=== PATIENT | male | born 1950 | race Caucasian/White ===

== ENCOUNTER → 2017-05-29 | Outpatient (CLI) | payer MEDICARE, OTHER ==
[~2017-05-29] MED LIST: ACETAMINOPHEN325 M1 PO; ASPIR 8181 MG PO; CEFAZOLIN 1GM VI1 G1; ELIQUIS5 MG PO; FLECAINIDE ACET50 M1 PO; GLIPIZIDE 10 MG10 MG PO; GLUCOPHAGE XR500 MG PO; GLUCOPHAGE500 MG PO; GLYBURIDE 2.5 MG PO; HUMALOG100 UNIT/1 SUBQ; HYDROCODONE-AP1 EAC6 PO; JANUVIA100 MG PO; LEVEMIR SUBQ; LISINOPRIL20 MG PO; PERCOCET 5-3251 EACH; PRAVACHOL40 MG PO; TOPROL XL25 MG PO; VAN500AD IV; VITAMIN D1000 UNI1 PO; VITAMINC500 PO; ZOSYN 3.3753.375 GM IV; ZYVOX600 MG PO
--- NOTE | 2017-05-30 13:24 | CON ---
[address] [address] CONSULTATION Name: VONDALUCIA Room: [facility]#: [id number] Admission: 05/29/17 Attend Phys: David Murguia DPM Discharge: Date of : 52 Report #: [id number] THIS REPORT FOR: //name// CC: David Cannon DATE OF SERVICE: 05/29/2017 INFECTIOUS DISEASE CONSULTATION AND FOLLOWUP ATTENDING PHYSICIAN: David Murguia DPM. REASON FOR FOLLOWUP: Left foot large wound deep-seated infection, multifocal osteomyelitis and previous transmetatarsal amputation. HISTORY OF PRESENT ILLNESS: The patient returns today in followup. He generally feels fairly well. He denies any particular complaints or specific question about fevers or chills. Appetite has been okay. He has significant peripheral neuropathy. PHYSICAL EXAMINATION: On examination, the wound actually has improved. There is a big gap still, although on probing, there is no evidence of exposed bone at this point. There is very little drainage. The overall degree of inflammation is decreased. There is no particular odor. I do not appreciate any purulence. He had completed his course of antibiotics within the last few days. ASSESSMENT AND PLAN: Deep foot infection. At this point, he had been on combination therapy. We will not renew those and continue wound VAC as prescribed by Dr. Murguia. We will see him in 2 weeks. He himself is instructed to call if problems or concerns. <ELECTRONICALLY SIGNED> By: Bandar Montes MD 05/30/17 1324 [id number] [id number] Montes MD /nt
== END ==
LOC: M.WC 05-22 14:00
DX: E11.621 Type 2 diabetes mellitus with foot ulcer (principal); L97.521 Non-pressure chronic ulcer of other part of left foot limited to breakdown of skin; L97.511 Non-pressure chronic ulcer of other part of right foot limited to breakdown of skin; L97.411 Non-pressure chronic ulcer of right heel and midfoot limited to breakdown of skin; E11.40 Type 2 diabetes mellitus with diabetic neuropathy, unspecified; L89.893 Pressure ulcer of other site, stage 3; E11.618 Type 2 diabetes mellitus with other diabetic arthropathy; I87.2 Venous insufficiency (chronic) (peripheral); B35.3 Tinea pedis; L89.894 Pressure ulcer of other site, stage 4; E11.36 Type 2 diabetes mellitus with diabetic cataract; Z89.422 Acquired absence of other left toe(s)

== ENCOUNTER → 2017-06-05 | Outpatient (CLI) | payer MEDICARE, OTHER | LOC: M.WC 02:41 | DX: E11.621 Type 2 diabetes mellitus with foot ulcer (principal); L97.521 Non-pressure chronic ulcer of other part of left foot limited to breakdown of skin; L97.511 Non-pressure chronic ulcer of other part of right foot limited to breakdown of skin; L97.411 Non-pressure chronic ulcer of right heel and midfoot limited to breakdown of skin; E11.622 Type 2 diabetes mellitus with other skin ulcer; L97.821 Non-pressure chronic ulcer of other part of left lower leg limited to breakdown of skin; E11.40 Type 2 diabetes mellitus with diabetic neuropathy, unspecified; I87.2 Venous insufficiency (chronic) (peripheral); B35.3 Tinea pedis; E11.36 Type 2 diabetes mellitus with diabetic cataract; Z89.422 Acquired absence of other left toe(s) ==

== ENCOUNTER → 2017-06-19 | Outpatient (CLI) | payer MEDICARE, OTHER ==
--- NOTE | 2017-06-20 10:51 | CON ---
[address] [address] CONSULTATION Name: VONDALUCIA W Room: [facility].#: [id number] Admission: 06/19/17 Attend Phys: David Murguia DPM Discharge: Date of : 52 Report #: [id number] THIS REPORT FOR: //name// CC: David Cannon DATE OF SERVICE: 06/19/2017 INFECTIOUS DISEASE CONSULTATION FOLLOWUP NOTE The patient was seen in the Wound Care Center. ATTENDING PHYSICIAN: David Murguia DPM. HISTORY OF PRESENT ILLNESS: Here for followup transmetatarsal amputation due to deep infection involving the left foot. He has also got some right plantar ulcers as well. Generally, he had been doing fairly well and continues to deny any systemic illness. He is undergoing wound care including wound VAC involving the still over the large defect transmetatarsal site lateral aspect. On examination, there is no exposed bone. Generally, the tissue is improved. He has been off antibiotics for the last 2-3 weeks, with only utilizing topical therapy at this point. ASSESSMENT AND PLAN: Deep foot infection. At this point, I do not have any plans to restart the antibiotics. He is to call if problems or concerns. I will see him intermittently in the short term, perhaps in 2 weeks. Continue wound care as prescribed by Dr. Murguia. <ELECTRONICALLY SIGNED> By: Bandar Montes MD 06/20/17 1051 0753 [id number] Montes MD /naeem
== END ==
LOC: M.WC 06-12 01:26
DX: E11.621 Type 2 diabetes mellitus with foot ulcer (principal); I87.2 Venous insufficiency (chronic) (peripheral); L97.521 Non-pressure chronic ulcer of other part of left foot limited to breakdown of skin; L97.511 Non-pressure chronic ulcer of other part of right foot limited to breakdown of skin; L89.894 Pressure ulcer of other site, stage 4; E11.40 Type 2 diabetes mellitus with diabetic neuropathy, unspecified; B35.3 Tinea pedis; E11.36 Type 2 diabetes mellitus with diabetic cataract; Z89.422 Acquired absence of other left toe(s)

== ENCOUNTER → 2017-06-26 | Outpatient (CLI) | payer MEDICARE, OTHER ==
--- NOTE | 2017-06-27 13:58 | CON ---
[address] [address] CONSULTATION Name: VONDALUCIA Room: [facility] Tez.#: [id number] Admission: 06/26/17 Attend Phys: David Murguia DPM Discharge: Date of : 52 Report #: [id number] THIS REPORT FOR: //name// CC: David Cannon DATE OF SERVICE: 06/26/2017 ATTENDING PHYSICIAN: Dr. David Murguia. HISTORY OF PRESENT ILLNESS: He is seen in the outpatient wound care center for ongoing issue of large defect involving the lateral aspect of the transmetatarsal amputation site, had received extended course of antibiotics, first parenteral then enteral over several weeks. This was discontinued roughly 3 weeks ago and monitored expectantly. He has generally been doing well, denies systemic illness. The wound itself has overall diminished in its size. On examination, there is no exposed bone. There is really no purulence. The wound appears to be fairly stable to improved and this is in spite of being off antibiotics for 3 weeks. I did review the labs, the sed rate has increased a little bit to 50 from 43. ASSESSMENT AND PLAN: Large postoperative foot wound. Will continue off antibiotics. We will be available as needed. Call if problems. <ELECTRONICALLY SIGNED> By: Bandar Montes MD 06/27/17 1358 0659 [id number] Montes MD /naeem
== END ==
LOC: M.WC 01:29 → M.RAD 01:29 → M.WC 14:00
DX: E11.621 Type 2 diabetes mellitus with foot ulcer (principal); L97.521 Non-pressure chronic ulcer of other part of left foot limited to breakdown of skin; L97.511 Non-pressure chronic ulcer of other part of right foot limited to breakdown of skin; L97.411 Non-pressure chronic ulcer of right heel and midfoot limited to breakdown of skin; E11.40 Type 2 diabetes mellitus with diabetic neuropathy, unspecified; I87.2 Venous insufficiency (chronic) (peripheral); B35.3 Tinea pedis; E11.36 Type 2 diabetes mellitus with diabetic cataract; Z89.422 Acquired absence of other left toe(s)

== ENCOUNTER → 2017-07-03 | Outpatient (CLI) | payer MEDICARE, OTHER | LOC: M.RAD 02:57 → M.WC 02:57 | DX: E11.621 Type 2 diabetes mellitus with foot ulcer (principal); L97.521 Non-pressure chronic ulcer of other part of left foot limited to breakdown of skin; L97.511 Non-pressure chronic ulcer of other part of right foot limited to breakdown of skin; L97.411 Non-pressure chronic ulcer of right heel and midfoot limited to breakdown of skin; E11.40 Type 2 diabetes mellitus with diabetic neuropathy, unspecified; E11.610 Type 2 diabetes mellitus with diabetic neuropathic arthropathy; E11.69 Type 2 diabetes mellitus with other specified complication; M86.372 Chronic multifocal osteomyelitis, left ankle and foot; E11.36 Type 2 diabetes mellitus with diabetic cataract; Z89.422 Acquired absence of other left toe(s) ==

== ENCOUNTER → 2017-07-10 | Outpatient (CLI) | payer MEDICARE, OTHER | LOC: M.WC 01:45 | DX: E11.621 Type 2 diabetes mellitus with foot ulcer (principal); L97.521 Non-pressure chronic ulcer of other part of left foot limited to breakdown of skin; L97.411 Non-pressure chronic ulcer of right heel and midfoot limited to breakdown of skin; E11.69 Type 2 diabetes mellitus with other specified complication; M86.372 Chronic multifocal osteomyelitis, left ankle and foot; E11.610 Type 2 diabetes mellitus with diabetic neuropathic arthropathy; E11.40 Type 2 diabetes mellitus with diabetic neuropathy, unspecified; E11.36 Type 2 diabetes mellitus with diabetic cataract; I87.2 Venous insufficiency (chronic) (peripheral); B35.3 Tinea pedis; Z89.422 Acquired absence of other left toe(s) ==

== ENCOUNTER → 2017-07-17 | Outpatient (CLI) | payer MEDICARE, OTHER | LOC: M.WC 01:39 | DX: E11.621 Type 2 diabetes mellitus with foot ulcer (principal); L97.521 Non-pressure chronic ulcer of other part of left foot limited to breakdown of skin; L97.411 Non-pressure chronic ulcer of right heel and midfoot limited to breakdown of skin; L97.511 Non-pressure chronic ulcer of other part of right foot limited to breakdown of skin; E11.40 Type 2 diabetes mellitus with diabetic neuropathy, unspecified; I87.2 Venous insufficiency (chronic) (peripheral); B35.3 Tinea pedis; E11.36 Type 2 diabetes mellitus with diabetic cataract; Z89.422 Acquired absence of other left toe(s) ==

== ENCOUNTER → 2017-07-24 | Outpatient (CLI) | payer MEDICARE, OTHER | LOC: M.WC 03:29 | DX: E11.621 Type 2 diabetes mellitus with foot ulcer (principal); L97.521 Non-pressure chronic ulcer of other part of left foot limited to breakdown of skin; L97.511 Non-pressure chronic ulcer of other part of right foot limited to breakdown of skin; L97.411 Non-pressure chronic ulcer of right heel and midfoot limited to breakdown of skin; E11.40 Type 2 diabetes mellitus with diabetic neuropathy, unspecified; I87.2 Venous insufficiency (chronic) (peripheral); E11.36 Type 2 diabetes mellitus with diabetic cataract; B35.3 Tinea pedis; Z89.422 Acquired absence of other left toe(s) ==

== ENCOUNTER → 2017-07-31 | Outpatient (CLI) | payer MEDICARE, OTHER | LOC: M.WC 04:48 | DX: E11.621 Type 2 diabetes mellitus with foot ulcer (principal); L97.521 Non-pressure chronic ulcer of other part of left foot limited to breakdown of skin; L97.411 Non-pressure chronic ulcer of right heel and midfoot limited to breakdown of skin; E11.36 Type 2 diabetes mellitus with diabetic cataract; E11.40 Type 2 diabetes mellitus with diabetic neuropathy, unspecified; E11.610 Type 2 diabetes mellitus with diabetic neuropathic arthropathy; E11.69 Type 2 diabetes mellitus with other specified complication; M86.372 Chronic multifocal osteomyelitis, left ankle and foot; I87.2 Venous insufficiency (chronic) (peripheral); B35.3 Tinea pedis; Z89.422 Acquired absence of other left toe(s) ==

== ENCOUNTER → 2017-08-07 | Outpatient (CLI) | payer MEDICARE, OTHER | LOC: M.WC 01:56 | DX: E11.621 Type 2 diabetes mellitus with foot ulcer (principal); L89.894 Pressure ulcer of other site, stage 4; L97.411 Non-pressure chronic ulcer of right heel and midfoot limited to breakdown of skin; E11.40 Type 2 diabetes mellitus with diabetic neuropathy, unspecified; E11.36 Type 2 diabetes mellitus with diabetic cataract; B35.3 Tinea pedis ==

== ENCOUNTER 2017-08-08 10:07 | Inpatient (IN) | payer MEDICARE, OTHER ==
[~2017-08-08] VITALS: Ht 180.3 cm; Wt 109.8 kg
[2017-08-08] VITALS (11 sets, daily range): BP systolic 104–150; BP diastolic 61–106
[~2017-08-08 10:07] MED LIST changes: -ACETAMINOPHEN325 M1 PO; -ASPIR 8181 MG PO; -ELIQUIS5 MG PO; -FLECAINIDE ACET50 M1 PO; -LEVEMIR SUBQ; -TOPROL XL25 MG PO; -VITAMIN D1000 UNI1 PO; -VITAMINC500 PO
[2017-08-08] MEDS ORDERED: ASPIR 8181 MG PO (10:20)
[2017-08-08] MEDS ORDERED: LEVEMIR SUBQ (10:20)
[2017-08-08] MEDS ORDERED: VITAMINC500 PO (10:21)
[2017-08-08] MEDS ORDERED: VITAMIN D1000 UNI1 PO ×2 (10:21)
[2017-08-08 11:09] LABS: ABSOLUTE BASOPHILS 0.1 thou/uL (0.0-0.2); ABSOLUTE EOSINOPHILS 0.8 thou/uL (0.0-0.7); ABSOLUTE LYMPHOCYTES 1.5 thou/uL (0.8-5.3); ABSOLUTE MONOCYTES 0.7 thou/uL (0.0-1.2); ABSOLUTE NEUTROPHILS 6.1 thou/uL (1.6-8.1); EOSINOPHILS 8.6 %; HEMATOCRIT 34.2 % (42.0-52.0); HEMOGLOBIN 11.2 gm/dL (14.0-18.0); LYMPHOCYTES 16.3 %; MCH 28.9 pg (26.0-34.0); MCHC 32.9 g/dL (28.0-37.0); MCV 87.7 fL (80.0-100.0); MONOCYTES 7.4 %; MPV 9.7 fl. (7.2-11.1); NUCLEATED RBCS 0 /100WBC; PLATELET COUNT* 238 thou/uL (150-400); POLYS 66.7 %; RDW-CV 16.2 % (10.5-14.5); WBC 9.1 thou/uL (4.0-11.0)
[2017-08-08 11:17] LABS: ANION GAP 7 mmol/L (7-16); APTT 26.7 Seconds (25.0-31.3); BUN 62 mg/dL (7-18); CALCIUM 8.7 mg/dL (8.5-10.1); CHLORIDE 109 mmol/L (98-107); CO2 25 mmol/L (21-32); CREATININE 1.9 mg/dL (0.6-1.3); GLUCOSE 140 mg/dL (70-99); SODIUM 141 mmol/L (136-145)
[2017-08-08 11:27] LABS: ALBUMIN 3.5 g/dL (3.4-5.0); ALKALINE PHOSPHATASE 61 U/L (46-116); LIPASE 207 U/L (73-393); NT-PRO BRAIN NAT PEPTIDE 1064 pg/mL (<300); POTASSIUM 7.1 mmol/L (3.5-5.1); SGOT 24 U/L (15-37); SGPT 26 U/L (30-65); TOTAL BILIRUBIN 0.3 mg/dL (<0.1-1.0); TOTAL PROTEIN 6.8 g/dL (6.4-8.2); TROPONIN-I LEVEL <0.06 ng/mL (<0.06)
--- NOTE | 2017-08-08 13:50 | NUR ---
PT BROUGHT TO ICU FROM ED. ASSESSMENT AND VS OBTAINED, SEE CHARTING. PT REMAINS TO BE IN A FLUTTER. CARDIOLOGY NURSE AT BEDSIDE AND NEW ORDERS OBTAINED. NISHI Armstrong+. PT HAS SEVERAL WOUNDS ON FEET AND PICS WERE OBTAINED.
[2017-08-08 14:40] LABS: CALCIUM 8.7 mg/dL (8.5-10.1); CREATININE 1.9 mg/dL (0.6-1.3); POTASSIUM 5.3 mmol/L (3.5-5.1)
--- NOTE | 2017-08-08 14:45 | NUR ---
K+ WAS 5.3. DR BARNETT WAS NOTIFIED OF LAB RESULTS AND URINE OUTPUT. ORDERS TO INCREASE NS TO 125ML/HR.
--- NOTE | 2017-08-08 16:18 | EKG ---
[place] [address] ELECTROCARDIOGRAM REPORT Name: LUCIA FERRARI Room: [address] ADM IN .R.#: [id number] Admission: 08/08/17 Attend Phys: Nicolas Don Discharge: Date of : 52 Report #: [id number] THIS REPORT FOR: //name// [facility] ED Test Date: 2017-08-08 Test Time: 10:16:16 Pat Name: LUCIA FERRARI Department: Room: [facility] Gender: M Healthcare Customer Service: : 1950 Requested By: Octavio Robb Order Number: [id number] MD: Aly Fritz Measurements Intervals [place] Rate: 95 P: [place]: QRS: 83 QRSD: 103 T: 49 QT: 368 QTc: 463 Interpretive Statements Atrial flutter Borderline right axis deviation Low voltage, extremity and precordial leads Compared to ECG 03/18/2017 15:01:28 Sinus tachycardia no longer present Electronically Signed On 08-08-2017 16:18:09 CDT by Aly Fritz [email or web address] <ELECTRONICALLY SIGNED> By: Aly Fritz MD, FACC 08/08/17 1618 1016 1016 Aly Fritz MD, FAC /EPI
--- NOTE | 2017-08-08 16:52 | 2DMMODE ---
[place] [address] 2 D/M-MODE ECHOCARDIOGRAM Name: LUCIA FERRARI Room: [address] IN [facility]#: [id number] Admission: 08/08/17 Attend Phys: Omega Khan Discharge: Date of : 52 Date of Service: 08/08/17 1652 Report #: [id number] THIS REPORT FOR: //name// APPROVED REPORT Study performed: 08/08/2017 15:16:44 EXAM: Comprehensive 2D, Doppler, and color-flow Echocardiogram Patient Location: In-Patient Room #: [facility] Status: routine BSA: 2.41 HR: 99 bpm BP: 109/71 mmHg Rhythm: NSR Other Information Study Quality: Good Indications A flutter 2D Dimensions LVEF(%): 64.58 (>50%) IVSd: 10.99 (7-11mm) LVOT Diam: 21.67 (18-24mm) LVDd: 45.10 mm PWd: 10.65 (7-11mm) Ascending Ao: 31.60 (22-36mm) LVDs: 29.26 (25-40mm) Aortic Root: 39.48 mm Daley's LVEF: 64.58 % Volumes Left Atrial Volume (Systole) LA ESV Index: 16.80 mL/m2 Aortic Valve AoV Peak Luis Armando.: 1.39 m/s AO Peak Gr.: 7.77 mmHg LVOT Max P.24 mmHg AO Mean Gr.: 4.07 mmHg LVOT Mean P.19 mmHg LVOT Max V: 1.03 m/s AO V2 VTI: 23.22 cm LVOT Mean V: 0.68 m/s ADRIÁN (VTI): 2.94 cm2 LVOT V1 VTI: 18.49 cm Mitral Valve E/A Ratio: 1.09 [place] [address] 2 D/M-MODE ECHOCARDIOGRAM Name: LUCIA FERRARI Room: [address] IN [facility]#: [id number] Admission: 08/08/17 Attend Phys: Omega Khan Discharge: Date of : 52 Date of Service: 08/08/17 1652 Report #: [id number] MV Decel. Time: 190.62 ms MV E Max Luis Armando.: 0.93 m/s MV PHT: 55.28 ms MVA (PHT): 3.98 cm2 TDI E/Lateral E': 5.47 E/Medial E': 5.81 Medial E' Luis Armando.: 0.16 m/s Lateral E' Luis Armando.: 0.17 m/s Pulmonary Valve PV Peak Luis Armando.: 1.32 m/s PV Peak Gr.: 6.97 mmHg Left Ventricle The left ventricle is normal size. There is normal LV segmental wall motion. There is normal left ventricular wall thickness. Left ventricular systolic function is normal. LVEF is 55-60%. The left ventricular diastolic function is normal. Right Ventricle The right ventricle is normal size. The right ventricular systolic function is normal. Atria The left atrium size is normal. The right atrium size is normal. Aortic Valve The aortic valve is normal in structure. No aortic regurgitation is present. There is no aortic valvular stenosis. Mitral Valve The mitral valve is normal in structure. Trace mitral regurgitation. No evidence of mitral valve stenosis. Tricuspid Valve The tricuspid valve is normal in structure. Unable to assess PA pressure. Trace tricuspid regurgitation. Pulmonic Valve The pulmonary valve is normal in structure. There is no pulmonic valvular regurgitation. Great Vessels The aortic root is normal in size. IVC is normal in size and collapses with >50% [place] [address] 2 D/M-MODE ECHOCARDIOGRAM Name: LUCIA FERRARI Room: [address] IN ..#: [id number] Admission: 08/08/17 Attend Phys: Omega Khan Discharge: Date of : 52 Date of Service: 08/08/17 1652 Report #: [id number] Pericardium There is no pericardial effusion. <Conclusion> The left ventricle is normal size. There is normal left ventricular wall thickness. Left ventricular systolic function is normal. LVEF is 55-60%. The left ventricular diastolic function is normal. Trace mitral regurgitation. IVC is normal in size and collapses with >50% inspiration <ELECTRONICALLY SIGNED> By: Butch Tran MD, FACC 08/08/171651 51 51 Butch Tran MD, FACC /INF
[2017-08-08 18:18] LABS: CALCIUM 8.4 mg/dL (8.5-10.1); CREATININE 1.9 mg/dL (0.6-1.3)
--- NOTE | 2017-08-08 20:57 | NUR ---
RECIEVED REPORT AND ASSUMED CARE OF PT AT 1930. PT HAD BOWEL MOVEMENT AT THAT TIME AFTER RECIEVING KAYEXALATE DURING DAYSHIFT. PT'S POTASSIUM LEVEL AT 5 PER LAST LAB VALUE. PT IN ATRIAL FLUTTER ON MONITOR, HEART RATE 70-90. PT DENIES CHEST OAINDIZZINESS OR SHORTNESS OF AIR. SPOKE WITH DR CALLEJAS AND GAVE UPDATE ON PT'S LAB VALUES AND CONDITION. RECIEVED ORDER TO CHANGE TO TELEMETRY STATUS.
[2017-08-09] VITALS (12 sets, daily range): BP systolic 100–132; BP diastolic 57–73
[2017-08-09 05:36] LABS: CALCIUM 8.4 mg/dL (8.5-10.1); CREATININE 1.7 mg/dL (0.6-1.3); POTASSIUM 4.9 mmol/L (3.5-5.1); TOTAL BILIRUBIN 0.4 mg/dL (<0.1-1.0); TOTAL PROTEIN 5.8 g/dL (6.4-8.2)
[2017-08-09 09:37] LABS: URINE BILIRUBIN NEGATIVE (Negative); URINE BLOOD TRACE (Negative); URINE CLARITY CLEAR; URINE COLOR YELLOW; URINE GLUCOSE-RANDOM NEGATIVE (Negative); URINE KETONES NEGATIVE (Negative); URINE LEUKOCYTES-REFLEX NEGATIVE (Negative); URINE NITRITE-REFLEX NEGATIVE (Negative); URINE PROTEIN NEGATIVE (Negative); URINE SPECIFIC GRAVITY 1.025 (1.005-1.030); URINE UROBILINOGEN 0.2 E.U./dl (0.2-1.0)
--- NOTE | 2017-08-09 10:40 | NUR ---
CHART REVIEWED, SPOKE WITH PT. PT LIVES BY HIMSELF, HE SAID HE MANAGES OKAY AT HOME. HE CURRENTLY IS COMING TO THE WOUND CENTER FOR HBO TREATMENTS. PT DOES NOT DRIVE, HIS BROTHER AND [id number] LIVE NEARBY AND HELP WITH TRANSPORTATION, DOING HIS GROCERY SHOPPING FOR HIM, ETC. PT SAID HE IS INDEP WITH ADL'S AT HOME. PT PLANS ON RETURNING HOME ALONE, HE DENIES ANY DISCHARGE NEEDS. HE HOPES HE CAN GO HOME SOON.
--- NOTE | 2017-08-09 14:33 | NUR ---
WOUND CARE NOTE: CONSULT RECEIVED FOR BOTH FEET. PATIENT PRESENTS WITH DIABETIC FOOT ULCERS TO BILATERAL FEET. BEING SEEN IN THE WOUND CENTER FOR HBO THERAPY AND WOUND CARE. LEFT FOOT: FULL THICKNESS ULCERATION ON AN INCISION LINE. WOUND MEASURES 4X4X1 WITH RED, MOIST WOUND BED. MEY-WOUND WITH MACERATION. DRAINING SEROSANGUINEOUS DRAINAGE. WOUND WAS CLEANSED WITH WOUND CLEANSER, PATTED DRY. APPLIED AQUACEL AG TO WOUND BED AND COVERED WITH ABD. WRAPPED WITH KERLIX. PLACED SIZE F TUBIGRIP. RIGHT HEEL: FULL THICKNESS ULCERATION, DIABETIC FOOT ULCER. WOUND MEASURES 1.5X1.6X0.1. MEY-WOUND IS CALLUSED. WOUND BED IS MOIST, PINK. DRAINING SEROSANGUINEOUS DRAINAGE. WOUND WAS CLEANSED WITH WOUND CLEANSER, PATTED DRY. APPLIED AQUACEL AG TO WOUND BED AND COVERED WITH 4X4. WRAPPED WITH KERLIX. PLACED SIZE F TUBIGRIP. RIGHT PLANTAR, LATERAL FOOT PARTIAL THICKNESS ULCERATION, DIABETIC FOOT ULCER. WOUND MEASURES 2.2X2.3X0.1. PINK, MOIST WOUND BED. DRAINING SMALL AMOUNTS OF SANGUINEOUS DRAINAGE. WOUND WAS CLEANSED WITH WOUND CLEANSER, PATTED DRY. APPLIED AQUACEL AG TO WOUND BED AND COVERED WITH ABD. WRAPPED WITH KERLIX. PLACED SIZE F TUBIGRIP. RIGHT PLANTAR, MEDIAL FOOT: FULL THICKNESS, DIABETIC FOOT ULCER. WOUND MEASURES 1.7X2.2X0.8. WOUND BED IS MOIST, RED TO 90% OF WOUND. 10% YELLOW, MOIST, ADHERENT SLOUGH. MEY-WOUND WITH ECCHYMOSIS TO THE DISTAL ASPECT OF WOUND AND MEY-WOUND. MACERATION TO MEY-WOUND. WOUND WAS CLEANSED WITH WOUND CLEANSER, PATTED DRY. PACKED WITH AQUACEL AG AND COVERED WITH ABD. SECURED WITH KERIX AND PLACED TUBIGRIP. OBTAINED NEW PODUS BOOTS, THE VELCRO ON HIS OLD ONES WERE NOT STICKING. RECOMMEND BILATERAL PODUS BOOTS WHEN IN BED TIGHT BLOOD GLUCOSE CONTROL ENCOURAGE GOOD NUTRITION AND HYDRATION FOR WOUND HEALING
--- NOTE | 2017-08-09 17:46 | TEE ---
[place] [address] TRANSESOPHAGEAL ECHOCARDIOGRAM Name: LUCIA FERRARI Room: [address] IN [facility]#: [id number] Admission: 08/08/17 Attend Phys: Omega Khan Discharge: Date of : 52 Date of Service: 08/09/17 1746 Report #: [id number] THIS REPORT FOR: //name// APPROVED REPORT Study performed: 08/09/2017 15:12:17 EXAM: Transesophageal Echocardiogram Patient Location: In-Patient Room #: [facility] Status: routine BSA: 2.29 HR: 86 bpm BP: 144/75 mmHg Rhythm: Atrial Flutter Other Information Study Quality: Good Indications Atrial flutter Echo Enhancing Agent Indication: Rule out Shunt Agent(s) / Amount(s) Used: Agitated Saline 10 cc Procedure After obtaining informed consent, patient underwent transesophageal echo in the Bedside. Type of Sedation : Conscious Sedation Sedation was administered by Della Dodd RN. Sedation start time: 1522 Case end Time: 1530 Sedation was achieved intravenously with: Versed (3) Fentanyl (75) Transesophageal probe was inserted and advanced into esophagus without difficulty by Butch Tran MD, FACC. Echo enhancement indication: R/O Septal defect. Echo enhancement agent administered: Agitated Saline The WILLARD was performed without complications. Synchronized Cardioversion acheived with 300 Joules after 1 attempt(s). Rhythm following Synchronized Cardioversion: Normal Sinus Rhythm Throughout the procedure, the blood pressure, pulse oximetry, cardiac rhythm, and rate were monitored. The patient tolerated the procedure without adverse effects. Recovery [address] [address] TRANSESOPHAGEAL ECHOCARDIOGRAM Name: LUCIA FERRARI Room: [address] IN [facility]#: [id number] Admission: 08/08/17 Attend Phys: Omega Khan Discharge: Date of : 52 Date of Service: 08/09/17 1746 Report #: [id number] from conscious sedation was uneventful and vital signs were stable. Left Ventricle The left ventricle is normal size. There is normal LV segmental wall motion. There is normal left ventricular wall thickness. Left ventricular systolic function is normal. LVEF is 55-60%. Right Ventricle The right ventricle is normal size. The right ventricular systolic function is normal. Atria No thrombus is visualized in the left atrium or appendage. Interatrial septum is intact without evidence of ASD or PFO. The right atrium size is normal. Aortic Valve The aortic valve is normal in structure. No aortic regurgitation is present. There is no aortic valvular stenosis. Mitral Valve The mitral valve is normal in structure. Trace mitral regurgitation. No evidence of mitral valve stenosis. Tricuspid Valve The tricuspid valve is normal in structure. Trace tricuspid regurgitation. Pulmonic Valve The pulmonary valve is normal in structure. There is no pulmonic valvular regurgitation. Great Vessels The aortic root is normal in size. Pericardium There is no pericardial effusion. <Conclusion> The left ventricle is normal size. There is normal left ventricular wall thickness. Left ventricular systolic function is normal. LVEF is 55-60%. Interatrial septum is intact without evidence of ASD [place] [address] TRANSESOPHAGEAL ECHOCARDIOGRAM Name: LUCIA FERRARI Room: [address] IN ..#: [id number] Admission: 08/08/17 Attend Phys: Omega Khan Discharge: Date of : 52 Date of Service: 08/09/171745 Report #: [id number] No thrombus is visualized in the left atrium or appendage. Trace mitral regurgitation. <ELECTRONICALLY SIGNED> By: Butch Tran MD, FACC 08/09/171745 45 45 Butch Tran MD, FACC /INF
[2017-08-10] VITALS: BP 112/64
[2017-08-10] MEDS ORDERED: FLECAINIDE ACET50 M1 PO ×4 (06:26→06:33)
[2017-08-10] MEDS ORDERED: ELIQUIS5 MG PO ×4 (06:26→06:33)
[2017-08-10] MEDS ORDERED: TOPROL XL25 MG PO ×4 (06:26→06:33)
[2017-08-10] MEDS ORDERED: ACETAMINOPHEN325 M1 PO ×2 (06:27)
--- NOTE | 2017-08-10 06:40 | NUR ---
ASSUMED CARE OF PATIENT AT APPROX 0420 TRANSFER FROM ICU ASSESSMENT REVIEWED AND AGREED WITH THE PATIENT REMAINS SR ON THE MONITOR O2 SAT MAINTAINED ON RA CONTINUES TO BE UP WITH ASSIST OF 1 TO THE BSC ROUTINE REGIMEN CONTINUES TO BE EFFECTIVE FOR SX MANAGEMENT PATIENT PROGRESSING TOWARDS GOALS WITHOUT S/SX OF ACUTE DISTRESS IN AM SUDHOLT AT BEDSIDE STATES TO HOLD FLUID UNTIL AM LABS DRAWN AND REVIEWED TENATIVE PLAN PER PATIENT REQUEST TO DC HOME TODAY COMMUNICATIONS TO PHYSICIAN TO OCCUR WHEN LAB RESULTS AVAILABLE SAFETY INTERVENTIONS CONTINUE BED LOWERED WHEELS LOCKED CALL LIGHT IN REACH SIDE RAILS UP REPORT TO BE GIVEN TO ONCOMING RN
[2017-08-10 07:18] LABS: CALCIUM 8.3 mg/dL (8.5-10.1); CREATININE 1.6 mg/dL (0.6-1.3); POTASSIUM 4.9 mmol/L (3.5-5.1)
[2017-08-10 08:23] VITALS: BP 116/71
--- NOTE | 2017-08-10 10:05 | NUR ---
ASSUMED CARE OF PT THIS AM AROUND 0715- WARNING ANALYST IN PLACE ORDERED, TRACING SR WITH 1ST DEGREE- UPON ASSESSMENT PT NOTED TO BE RESTING IN BED, WATCHING TV- PT A&O X4- CONTINENT OF BOWEL AND BLADDER- ASSIST X1 WITH TRANSFERS- PT EXPRESSESS WISHES TO BE D/C'D THIS SHIFT- NEPHROLOGY IN TO ASSESS, WITH ORDERS STARTED FOR IVF/DEXTROSE R/T HYPERNATRMIA THIS AM- ABDOMEN SOFT/ROUND/NON-TENDER, BS X4 QUADS- PT REPORTS LAST BM THIS AM- 2+ BLE EDEMA NOTED- FOOT WOUNDS NOTED TO BILATERAL FEET, DRESSINGS IN PLACE WITH FOOT BRACE/PROTECTORS INDICATED- TUB MEDICARE INSURANCE SPECIALIST STOCKINGS IN PLACE- GOOD PO INTAKE NOTED THIS AM WITH BREAKFAST- BS MONITORED PRESCIBED- CARDIOLOGY REPORTS TO SIGN OFF AT THIS TIME- PT DENIES ANY C/O PAIN/DISCOMFORT AT THIS TIME- CALL LIGHT AND PERSONAL BELONGINGS WITN IN REACH- HOURLY ROUNDS IN PLACE R/T SAFETY/NEEDS- ALL NEEDS MET AT THIS TIME-WCTM
[2017-08-10 11:41] VITALS: BP 108/46
[2017-08-10] MEDS ORDERED: VITAMIN D1000 UNI1 PO (13:02)
[2017-08-10 13:05] VITALS: BP 108/46
[2017-08-10 15:09] LABS: IgA 109 mg/dL (61-437); IgG 703 mg/dL (700-1600); IgM 22 mg/dL (20-172)
--- NOTE | 2017-08-10 16:25 | NUR ---
ORDERS RECIEVED FOR OKAY TO D/C PER IF OKAY WITH CARDIOLOGY- CARDIOLOGY OKAY WITH D/C AND HAS SIGNED OFF OF CASE AT THIS TIME- CN IN TO GIVE PT SAMPLES OF ELIQUIS ALONGN WITH COUPON THIS AM- NEPHROLOGY OKAY WITH D/C, WITH OP F/U- IV TO RIGHT FA D/C'D ALONG WITH DIRECTOR DIGITAL PRIOR TO D/C- DRESSING TO BLE CHANGED PRESCIBED THIS SHIFT, PICTURES OBTAINED AND PLACED ON CHART FOR VIEWING PRIOR TO D/C- D/C TEACHING/EDUCATION/F/U COMMUNICATED WITH ALL QUESTIONS AND CONCERNS ADDRESSED- SON THERE AT TIME OF D/C- WRITTEN EDUCATION/SCRIPTS PROVIDED TO PT AND SON AT TIME OF D/C- BELONGINGS PACKED AND ACCOUNTED FOR PER PT AND SON- PT ESCORTED TO SON VEHICLE PER TECH VIA W/C AT TIME OF D/C WITH ALL BELONGINGS- PT NOTED TO D/C AT 1410, NO PROBLEMS TO NOTE AT TIME OF D/C
[2017-08-12 15:10] LABS: KAPPA FREE LIGHT CHAINS 32.5 mg/L (3.3-19.4); LAMBDA FREE LIGHT CHAINS 19.9 mg/L (5.7-26.3)
--- NOTE | 2017-08-21 13:49 | CON ---
[address] [address] CONSULTATION Name: LUCIA FERRARI Room: [address]#: [id number] Admission: 08/08/17 Attend Phys: Nicolas Don Discharge: 08/10/17 Date of : 52 Report #: [id number] THIS REPORT FOR: //name// CC: Dameon Khan DATE OF SERVICE: 08/09/2017 NEPHROLOGY CONSULTATION CONSULTING PHYSICIAN: Dr. Robb. REASON FOR CONSULTATION: Hyperkalemia and acute kidney injury on chronic kidney disease. CHIEF COMPLAINT: Fast heartbeat. HISTORY OF PRESENT ILLNESS: This is a very pleasant 67-year-old male who has a past medical history of diabetes type 2, which seems to be controlled, his A1c being 6.3 in this admission; history of hypertension, which is pretty controlled as per patient; what seems like chronic kidney disease stage 3, which the patient was unaware of and other medical problems, who was brought to the Emergency Room because he was found to have irregular heartbeat. The patient was going for his hyperbaric treatment when a it help desk technician noticed that he has a fast and irregular heart rate. He was found to be in atrial flutter in the ER and his rate was not controlled at that time. He was also found to have a potassium of 7.1 and a creatinine of 1.9, whereas his baseline creatinine runs between 1.5-1.7. At home, he takes lisinopril 40 mg a day. He denies using any NSAIDs or any recent use of Bactrim. He is getting hyperbaric treatment for ulcer on his right foot and he also had partial amputation of the left foot in June of this year. The patient was started on IV fluids and a Trejo catheter was placed and he has had a good urine output of about 1.6 liters since he has come to the hospital and his potassium is also down to normal now 4.9. Cardiology is on board seeing him as well. His echocardiogram yesterday revealed ejection fraction of 55-60%. REVIEW OF SYSTEMS: The patient has no chest pain, no shortness of breath, other organ systems were reviewed and they were also negative. PAST MEDICAL HISTORY: 1. History of diabetes type 2, which is controlled. 2. Hyperlipidemia. 3. Hypertension. 4. Diabetic ulcer of the left foot. PAST SURGICAL HISTORY: Partial amputation of the left foot, [place] [address] CONSULTATION Name: LUCIA FERRARI Paula Room: [address]#: [id number] Admission: 08/08/17 Attend Phys: Nicolas Don Discharge: 08/10/17 Date of : 52 Report #: [id number] right leg fracture and left wrist fracture. ALLERGIES: No known drug allergies. SOCIAL HISTORY: Denies using any alcohol. Lives by himself. Denies using any tobacco or recreational drugs. FAMILY HISTORY: Reviewed and not relevant to the current situation. HOME MEDICATIONS: They were reviewed and include lisinopril, pravastatin, lispro, detemir, aspirin 81 mg a day, ascorbic acid, cholecalciferol. PHYSICAL EXAMINATION: VITAL SIGNS: Blood pressure is 105/68, pulse ox is 99% on room air, respiratory rate is 13, pulse rate of 62, and temperature is 36.7. GENERAL: He is awake, alert, oriented x 3. HEAD, EYES, EARS, NOSE AND THROAT: Mucous membranes are dry. NECK: No JVD. CHEST: Clear to auscultation bilaterally. No crackles heard or wheezing. CARDIOVASCULAR: S1, S2 normal. Irregularly irregular. ABDOMEN: Soft, nondistended, nontender. Bowel sounds are present. EXTREMITIES: No lower extremity edema, symmetrical extremities. NEUROLOGIC FUNCTION: Gross neurological function is intact. PSYCHIATRIC: Mood and affect seems to be normal. LABORATORY DATA: Labs from August 08, showed hemoglobin of 7.2 and potassium from 08/09/2017 was 4.9. Creatinine was 1.7. Other labs were reviewed. IMAGING: Chest x-ray was also reviewed. ASSESSMENT AND PLAN: 1. Acute renal failure on chronic kidney disease stage 3: Acute renal failure was most likely because of dehydration in the setting of KESHIA inhibitor use and also probably underperfusion because of atrial flutter with a rapid ventricular response. His heart rate is now controlled, but he is still in atrial flutter, and he was given IV fluids yesterday. Creatinine is down to his baseline, which is 1.5-1.7. Keep holding KESHIA inhibitor. We will check a UA, serum immunofixation studies as well as we will also check a renal ultrasound. We will go ahead and decrease his IV fluids, normal saline at 75 mL an hour. 2. Hyperkalemia: This is likely because of acute renal insufficiency and use of lisinopril. I am little leery about the first potassium being 7 because it came down really quickly and it is possible that the first one was hemolyzed, although it was not documented. We will keep the lisinopril on hold. 3. Hypotension: Blood pressures were running slightly towards the lower side, holding off on the KESHIA inhibitor and try to keep his mean arterial pressure more than 65. [address] [place] [address] CONSULTATION Name: LUCIA FERRARI Room: [address] IN M.R.#: [id number] Admission: 08/08/17 Attend Phys: Nicolas Don Discharge: 08/10/17 Date of : 52 Report #: [id number] 4. Atrial flutter, which looks like new onset with rapid ventricular response: Now, his rate is controlled, but he is still in atrial flutter. Cardiology is closely monitoring him. 5. Right foot ulcer. He is getting hyperbaric treatment for that and I am going to leave that up to primary for further management of that. 6. Diabetes type 2: We will check his blood glucose, which is pretty well controlled. He is on insulin as per primary team. Thank you for this consultation. We will continue to follow along with you. <ELECTRONICALLY SIGNED> By: Josefina Rod MD 08/21/17 1349 0854 1115Ajeanie Rod MD /nt
== END 2017-08-10 16:10 | disposition home or self-care (01) | DRG 308 ==
LOC: M.ERS 10:07 → M.ICU 12:43 → M.TBA-ER 12:43 → M.ICU 13:49 → M.2W 08-10 04:34
PROVIDERS: Emergency Medicine Emergency Medical Services; Internal Medicine; ADMIT Internal Medicine
PROC: B24BZZ4 Ultrasonography of Heart with Aorta, Transesophageal (ICD-10-PCS; principal; 2017-08-09)
DX: I48.92 Unspecified atrial flutter (principal); N17.0 Acute kidney failure with tubular necrosis; E86.0 Dehydration; E11.21 Type 2 diabetes mellitus with diabetic nephropathy; E78.5 Hyperlipidemia, unspecified; E87.5 Hyperkalemia; E11.22 Type 2 diabetes mellitus with diabetic chronic kidney disease; I48.91 Unspecified atrial fibrillation; I12.9 Hypertensive chronic kidney disease with stage 1 through stage 4 chronic kidney disease, or unspecified chronic kidney disease; N18.3 Chronic kidney disease, stage 3 (moderate); I95.9 Hypotension, unspecified; E11.621 Type 2 diabetes mellitus with foot ulcer; Z79.899 Other long term (current) drug therapy; Z79.4 Long term (current) use of insulin; Z89.432 Acquired absence of left foot; Z87.81 Personal history of (healed) traumatic fracture; Z79.82 Long term (current) use of aspirin

== ENCOUNTER → 2017-08-08 | Outpatient (CLI) | payer MEDICARE, OTHER | LOC: M.WC 09:00 | DX: E11.621 Type 2 diabetes mellitus with foot ulcer (principal); L89.894 Pressure ulcer of other site, stage 4; L97.521 Non-pressure chronic ulcer of other part of left foot limited to breakdown of skin; L97.511 Non-pressure chronic ulcer of other part of right foot limited to breakdown of skin; E11.40 Type 2 diabetes mellitus with diabetic neuropathy, unspecified; E11.36 Type 2 diabetes mellitus with diabetic cataract; I87.2 Venous insufficiency (chronic) (peripheral); B35.3 Tinea pedis ==

== ENCOUNTER → 2017-08-14 | Outpatient (CLI) | payer MEDICARE, OTHER ==
[~2017-08-14] MED LIST changes: +ACETAMINOPHEN325 M1 PO; +ASPIR 8181 MG PO; +ELIQUIS5 MG PO; +FLECAINIDE ACET50 M1 PO; +LEVEMIR SUBQ; +TOPROL XL25 MG PO; +VITAMIN D1000 UNI1 PO; +VITAMINC500 PO
== END ==
LOC: M.WC 01:59
DX: E11.621 Type 2 diabetes mellitus with foot ulcer (principal); I87.2 Venous insufficiency (chronic) (peripheral); L97.511 Non-pressure chronic ulcer of other part of right foot limited to breakdown of skin; L97.521 Non-pressure chronic ulcer of other part of left foot limited to breakdown of skin; L97.411 Non-pressure chronic ulcer of right heel and midfoot limited to breakdown of skin; L89.894 Pressure ulcer of other site, stage 4; E11.40 Type 2 diabetes mellitus with diabetic neuropathy, unspecified; B35.3 Tinea pedis; E11.36 Type 2 diabetes mellitus with diabetic cataract; Z89.422 Acquired absence of other left toe(s)

== ENCOUNTER → 2017-08-21 | Outpatient (CLI) | payer MEDICARE, OTHER | LOC: M.WC 02:25 | DX: E11.621 Type 2 diabetes mellitus with foot ulcer (principal); L97.521 Non-pressure chronic ulcer of other part of left foot limited to breakdown of skin; I87.2 Venous insufficiency (chronic) (peripheral); L97.411 Non-pressure chronic ulcer of right heel and midfoot limited to breakdown of skin; L89.894 Pressure ulcer of other site, stage 4; E11.40 Type 2 diabetes mellitus with diabetic neuropathy, unspecified; B35.3 Tinea pedis; E11.36 Type 2 diabetes mellitus with diabetic cataract; Z89.422 Acquired absence of other left toe(s) ==

== ENCOUNTER → 2017-08-23 | Outpatient (CLI) | payer MEDICARE, OTHER | LOC: M.WC 02:11 | DX: E11.621 Type 2 diabetes mellitus with foot ulcer (principal); L97.521 Non-pressure chronic ulcer of other part of left foot limited to breakdown of skin; L89.894 Pressure ulcer of other site, stage 4; E11.40 Type 2 diabetes mellitus with diabetic neuropathy, unspecified; I87.2 Venous insufficiency (chronic) (peripheral); B35.3 Tinea pedis; E11.36 Type 2 diabetes mellitus with diabetic cataract; Z89.422 Acquired absence of other left toe(s) ==

== ENCOUNTER → 2017-08-26 | Outpatient (CLI) | payer MEDICARE, OTHER | LOC: M.WC 09:00 | DX: E11.621 Type 2 diabetes mellitus with foot ulcer (principal); L97.511 Non-pressure chronic ulcer of other part of right foot limited to breakdown of skin; L97.521 Non-pressure chronic ulcer of other part of left foot limited to breakdown of skin; L97.411 Non-pressure chronic ulcer of right heel and midfoot limited to breakdown of skin; L89.894 Pressure ulcer of other site, stage 4; E11.40 Type 2 diabetes mellitus with diabetic neuropathy, unspecified; I87.2 Venous insufficiency (chronic) (peripheral); B35.3 Tinea pedis; E11.36 Type 2 diabetes mellitus with diabetic cataract; Z89.422 Acquired absence of other left toe(s) ==

== ENCOUNTER → 2017-08-28 | Outpatient (CLI) | payer MEDICARE, OTHER | LOC: M.WC 01:19 | DX: E11.621 Type 2 diabetes mellitus with foot ulcer (principal); L97.511 Non-pressure chronic ulcer of other part of right foot limited to breakdown of skin; L89.894 Pressure ulcer of other site, stage 4; I87.2 Venous insufficiency (chronic) (peripheral); E11.40 Type 2 diabetes mellitus with diabetic neuropathy, unspecified; E11.36 Type 2 diabetes mellitus with diabetic cataract; B35.3 Tinea pedis; Z89.422 Acquired absence of other left toe(s) ==

== ENCOUNTER → 2017-08-30 | Outpatient (CLI) | payer MEDICARE, OTHER | LOC: M.WC 09:22 | DX: E11.621 Type 2 diabetes mellitus with foot ulcer (principal); L97.521 Non-pressure chronic ulcer of other part of left foot limited to breakdown of skin; L97.511 Non-pressure chronic ulcer of other part of right foot limited to breakdown of skin; I87.2 Venous insufficiency (chronic) (peripheral); E11.36 Type 2 diabetes mellitus with diabetic cataract; E11.40 Type 2 diabetes mellitus with diabetic neuropathy, unspecified; B35.3 Tinea pedis; Z89.422 Acquired absence of other left toe(s) ==

== ENCOUNTER → 2017-09-04 | Outpatient (CLI) | payer MEDICARE, OTHER | LOC: M.WC 11:56 | DX: E11.621 Type 2 diabetes mellitus with foot ulcer (principal); L97.521 Non-pressure chronic ulcer of other part of left foot limited to breakdown of skin; L97.411 Non-pressure chronic ulcer of right heel and midfoot limited to breakdown of skin; E11.610 Type 2 diabetes mellitus with diabetic neuropathic arthropathy; E11.69 Type 2 diabetes mellitus with other specified complication; M86.372 Chronic multifocal osteomyelitis, left ankle and foot; E11.40 Type 2 diabetes mellitus with diabetic neuropathy, unspecified; E11.36 Type 2 diabetes mellitus with diabetic cataract; L84 Corns and callosities; I87.2 Venous insufficiency (chronic) (peripheral); B35.3 Tinea pedis; Z89.422 Acquired absence of other left toe(s) ==

== ENCOUNTER → 2017-09-11 | Outpatient (CLI) | payer MEDICARE, OTHER | LOC: M.WC 10:30 | DX: E11.621 Type 2 diabetes mellitus with foot ulcer (principal); L97.411 Non-pressure chronic ulcer of right heel and midfoot limited to breakdown of skin; L97.521 Non-pressure chronic ulcer of other part of left foot limited to breakdown of skin; E11.40 Type 2 diabetes mellitus with diabetic neuropathy, unspecified; E11.610 Type 2 diabetes mellitus with diabetic neuropathic arthropathy; E11.69 Type 2 diabetes mellitus with other specified complication; M86.372 Chronic multifocal osteomyelitis, left ankle and foot; E11.36 Type 2 diabetes mellitus with diabetic cataract; I87.2 Venous insufficiency (chronic) (peripheral); B35.3 Tinea pedis ==

== ENCOUNTER → 2017-09-18 | Outpatient (CLI) | payer MEDICARE, OTHER | LOC: M.WC 04:31 | DX: E11.621 Type 2 diabetes mellitus with foot ulcer (principal); L97.511 Non-pressure chronic ulcer of other part of right foot limited to breakdown of skin; L97.521 Non-pressure chronic ulcer of other part of left foot limited to breakdown of skin; L97.411 Non-pressure chronic ulcer of right heel and midfoot limited to breakdown of skin; I87.2 Venous insufficiency (chronic) (peripheral); E11.40 Type 2 diabetes mellitus with diabetic neuropathy, unspecified; L89.894 Pressure ulcer of other site, stage 4; B35.3 Tinea pedis; E11.36 Type 2 diabetes mellitus with diabetic cataract; Z89.422 Acquired absence of other left toe(s) ==

== ENCOUNTER → 2017-09-25 | Outpatient (CLI) | payer MEDICARE, OTHER | LOC: M.WC 02:53 | DX: E11.621 Type 2 diabetes mellitus with foot ulcer (principal); L97.511 Non-pressure chronic ulcer of other part of right foot limited to breakdown of skin; L97.521 Non-pressure chronic ulcer of other part of left foot limited to breakdown of skin; L89.894 Pressure ulcer of other site, stage 4; E11.40 Type 2 diabetes mellitus with diabetic neuropathy, unspecified; I87.2 Venous insufficiency (chronic) (peripheral); B35.3 Tinea pedis; E11.36 Type 2 diabetes mellitus with diabetic cataract; Z89.422 Acquired absence of other left toe(s) ==

== ENCOUNTER → 2017-10-02 | Outpatient (CLI) | payer MEDICARE, OTHER | LOC: M.WC 13:00 | DX: E11.621 Type 2 diabetes mellitus with foot ulcer (principal); L97.511 Non-pressure chronic ulcer of other part of right foot limited to breakdown of skin; L97.521 Non-pressure chronic ulcer of other part of left foot limited to breakdown of skin; L89.894 Pressure ulcer of other site, stage 4; E11.40 Type 2 diabetes mellitus with diabetic neuropathy, unspecified; E11.610 Type 2 diabetes mellitus with diabetic neuropathic arthropathy; E11.69 Type 2 diabetes mellitus with other specified complication; M86.372 Chronic multifocal osteomyelitis, left ankle and foot; I87.2 Venous insufficiency (chronic) (peripheral); E11.36 Type 2 diabetes mellitus with diabetic cataract; Z89.422 Acquired absence of other left toe(s) ==

== ENCOUNTER → 2017-10-09 | Outpatient (CLI) | payer MEDICARE, OTHER | LOC: M.WC 03:40 | DX: E11.621 Type 2 diabetes mellitus with foot ulcer (principal); L97.511 Non-pressure chronic ulcer of other part of right foot limited to breakdown of skin; L97.521 Non-pressure chronic ulcer of other part of left foot limited to breakdown of skin; L89.894 Pressure ulcer of other site, stage 4; I87.2 Venous insufficiency (chronic) (peripheral); E11.40 Type 2 diabetes mellitus with diabetic neuropathy, unspecified; E11.610 Type 2 diabetes mellitus with diabetic neuropathic arthropathy; E11.69 Type 2 diabetes mellitus with other specified complication; M86.372 Chronic multifocal osteomyelitis, left ankle and foot; E11.36 Type 2 diabetes mellitus with diabetic cataract ==

== ENCOUNTER → 2017-10-16 | Outpatient (CLI) | payer MEDICARE, OTHER | LOC: M.WC 04:05 | DX: E11.621 Type 2 diabetes mellitus with foot ulcer (principal); L97.511 Non-pressure chronic ulcer of other part of right foot limited to breakdown of skin; L97.521 Non-pressure chronic ulcer of other part of left foot limited to breakdown of skin; L89.894 Pressure ulcer of other site, stage 4; I87.2 Venous insufficiency (chronic) (peripheral); E11.40 Type 2 diabetes mellitus with diabetic neuropathy, unspecified; E11.36 Type 2 diabetes mellitus with diabetic cataract ==

== ENCOUNTER → 2017-10-23 | Outpatient (CLI) | payer MEDICARE, OTHER | LOC: M.WC 04:15 | DX: E11.621 Type 2 diabetes mellitus with foot ulcer (principal); L97.511 Non-pressure chronic ulcer of other part of right foot limited to breakdown of skin; E11.69 Type 2 diabetes mellitus with other specified complication; M86.372 Chronic multifocal osteomyelitis, left ankle and foot; E11.610 Type 2 diabetes mellitus with diabetic neuropathic arthropathy; E11.40 Type 2 diabetes mellitus with diabetic neuropathy, unspecified; L97.521 Non-pressure chronic ulcer of other part of left foot limited to breakdown of skin; E11.36 Type 2 diabetes mellitus with diabetic cataract; I87.2 Venous insufficiency (chronic) (peripheral); B35.3 Tinea pedis ==

== ENCOUNTER → 2017-10-30 | Outpatient (CLI) | payer MEDICARE, OTHER | LOC: M.WC 03:37 | DX: E11.622 Type 2 diabetes mellitus with other skin ulcer (principal); L97.521 Non-pressure chronic ulcer of other part of left foot limited to breakdown of skin; L97.511 Non-pressure chronic ulcer of other part of right foot limited to breakdown of skin; E11.40 Type 2 diabetes mellitus with diabetic neuropathy, unspecified; E11.36 Type 2 diabetes mellitus with diabetic cataract; I87.2 Venous insufficiency (chronic) (peripheral); L84 Corns and callosities; B35.3 Tinea pedis; Z89.422 Acquired absence of other left toe(s) ==

== ENCOUNTER → 2017-11-13 | Outpatient (CLI) | payer MEDICARE, OTHER | LOC: M.WC 04:10 | DX: E11.621 Type 2 diabetes mellitus with foot ulcer (principal); L97.511 Non-pressure chronic ulcer of other part of right foot limited to breakdown of skin; L97.521 Non-pressure chronic ulcer of other part of left foot limited to breakdown of skin; I87.2 Venous insufficiency (chronic) (peripheral); E11.40 Type 2 diabetes mellitus with diabetic neuropathy, unspecified; E11.36 Type 2 diabetes mellitus with diabetic cataract; L84 Corns and callosities; Z89.422 Acquired absence of other left toe(s) ==

== ENCOUNTER → 2017-12-18 | Outpatient (CLI) | payer MEDICARE, OTHER | LOC: M.WC 04:47 | DX: E11.621 Type 2 diabetes mellitus with foot ulcer (principal); L97.521 Non-pressure chronic ulcer of other part of left foot limited to breakdown of skin; E11.40 Type 2 diabetes mellitus with diabetic neuropathy, unspecified; E11.69 Type 2 diabetes mellitus with other specified complication; M86.372 Chronic multifocal osteomyelitis, left ankle and foot; E11.610 Type 2 diabetes mellitus with diabetic neuropathic arthropathy; E11.36 Type 2 diabetes mellitus with diabetic cataract; Z89.422 Acquired absence of other left toe(s) ==